=== PATIENT | male | born 1945 | race Caucasian/White ===

== ENCOUNTER → 2017-07-09 | Outpatient (CLI) | payer MEDICARE ==
--- NOTE | 2017-07-10 10:02 | PN ---
DATE OF CONSULT: 07/09/17 HISTORY OF PRESENT ILLNESS/SLEEP WAKE EVALUATION: 71 -year-old gentleman has been evaluated in the sleep center for evaluation of severe obstructive sleep apnea/hypopnea syndrome. The patient has been diagnosed with obstructive sleep apnea about 16 years ago. At the same time, he has had UPPP. Since that time, the patient started on treatment with BIPAP. Last titration done about 8 years ago. Presently the patient continued to use his BIPAP equipment every night. He does not know what pressure he has. SLEEP SCHEDULE: His usual sleep schedule from about 10:30 to 11 p.m. until 7: 30 a.m. FALLING ASLEEP: DURING SLEEP: Sometimes he opens his mouth during the night and wakes up. He eats in his bedroom. His machine is about 11 years old and does not work well at the present time. Burdett sleep scale significantly increased to 15. DURING THE DAY/WAKE STATE: The patient felt sleepy during the day. Medications: 1. ( ). 2. Atorvastatin. 3. ( ). PAST MEDICAL HISTORY: Hypertension, hyperlipidemia, allergy, back problems. PAST SURGICAL HISTORY: UPPP, right knee, total right knee replacement, several basal cell carcinomas of the skin has been removed. Back surgery one year ago. FAMILY HISTORY: Hypertension, arthritis, snoring, tuberculosis. Pneumonia and cancer. SOCIAL HISTORY: Positive for smoking up to two packs for 14 years, quite 34 years ago. Alcohol consumption occasional. REVIEW OF SYSTEMS: Tiredness and sleepiness during the day even while using BIPAP. No fevers. No double vision. No recent chest pain. No shortness of breath. No abdominal pain. No bleeding episodes. No blood in urine. No seizure episodes. PHYSICAL EXAM: GENERAL: A pleasant gentleman without any distress. VITAL SIGNS: BP 106/69, HR 66, RR 16, height 5 feet 8, weight 208, body mass index 31.6. Temperature 97.7. Oxygen saturation on room air 97%. HEENT: PERRLA, EOMI. Evaluation of oropharynx status post UPPP. No uvula. Short distance between soft palate and posterior pharyngeal wall. NECK: Supple. No JVD. Thyroid is not palpable. LUNGS: Clear to auscultation and percussion. Good air exchange. No wheezing or rhonchi. HEART: S1, S2 regular. No murmurs, gallops or rubs. ABDOMEN: Soft, nontender. Bowel sounds are preset. No organomegaly appreciated. EXTREMITIES: No clubbing or cyanosis. Scar on the right knee after knee replacement. DIELECTRIC PRESS OPERATOR: Awake, alert and oriented times three. Cranial nerves 2 to 7 intact. There is no fasciculation or atrophy noted. No focal deficits observed. IMPRESSION: 1. Obstructive sleep apnea/hypopnea syndrome diagnosed about 16 years ago. The patient is on treatment with BIPAP every night but has sleepiness during the day. Burdett sleep scale increased to 16. 2. Obesity, BMI 31.6. 3. Hypertension. 4. Back problems status post back surgery one year ago. 5. Hyperlipidemia. 6. Allergy. 7. Status post UPPP. 8. Status post sinus surgery. 9. Status post total right knee replacement. 10. Status post several basal cell carcinoma removed from the skin. PLAN: 1. BIPAP titration for evaluation of effective BIPAP pressure at the present time. 2. Losing weight. 3. Sleep hygiene with regular time in bed for at least 8 hours. 4. No driving if patient feels any sleepiness. Patient is aware of civil and criminal liability for unsafe driving. Thank you for allowing me to participate in the management of you patient. Sincerely, Mohit Leyva MD, PhD, FAASM Diplomat of [place] [employer]. Sleep Medicine Board by [place] [employer] [place] [employer] Manager Transportation [facility]
== END ==
LOC: SLEEP 15:32
PROVIDERS: ATTEND Internal Medicine
DX: G47.33 Obstructive sleep apnea (adult) (pediatric) (principal); E66.9 Obesity, unspecified; E78.5 Hyperlipidemia, unspecified; I10 Essential (primary) hypertension; Z96.651 Presence of right artificial knee joint; Z98.890 Other specified postprocedural states; Z87.891 Personal history of nicotine dependence; Z79.899 Other long term (current) drug therapy
CPT/HCPCS: 99211

== ENCOUNTER → 2018-06-15 | Outpatient (CLI) | payer MEDICARE ==
[2018-06-15 10:30] LABS: Albumin 3.9 g/dL (3.5-5.0); Calcium 9.2 mg/dL (8.4-10.2); Potassium 4.1 mmol/L (3.5-5.1); Total Bilirubin 1.6 mg/dL (0.2-1.3); Total Protein 6.7 g/dL (6.3-8.2)
[2018-06-15 10:31] LABS: HCT 40.8 % (39.0-53.0); HGB 13.9 gm/dL (13.0-17.5); MCH 32.4 pg (25.0-35.0); MCV 95.3 fL (80.0-100.0); Mean Platelet Volume 7.9; Platelet Count 201 k/uL (150-450); RBC 4.28 m/uL (4.30-5.90); RDW 13.5 % (11.5-15.5); WBC 9.6 k/uL (3.8-10.6)
[2018-06-15 10:35] LABS: Appearance,Urine Clear (Clear); Bacteria,Urine Rare /hpf; Bilirubin,Urine Negative (Negative); Blood,Urine Trace (Negative); Color,Urine Yellow; Glucose,Urine (UA) Negative (Negative); Ketones,Urine Trace (Negative); Leukocyte Esterase,Urine Negative (Negative); Mucus,Urine Rare /hpf; Nitrite,Urine Negative (Negative); PH, Urine 6.5 (5.0-8.0); Protein,Urine Trace (Negative); RBC,Urine 1 /hpf (0-5); Urobilinogen,Urine <2.0 mg/dL (<2.0)
--- NOTE | 2018-06-15 13:01 | XR ---
EXAMINATION TYPE: XR chest 2V DATE OF EXAM: 06/15/2018 COMPARISON: 02/05/2011 HISTORY: 72-year-old male with fever TECHNIQUE: Frontal and lateral views FINDINGS: The cardiomediastinal silhouette, aorta, and pulmonary vasculature are within normal limits. There is some patchy opacity in the posterior basilar right lower lobe seen only on the lateral view. No pleu ral effusion. IMPRESSION: Patchy opacity seen in the basilar posterior right lower lobe on the lateral view. Developing pneumon ia here not excluded.
== END | disposition home or self-care (01) ==
LOC: LABWHC1 08:49
PROVIDERS: ATTEND Internal Medicine
DX: R50.9 Fever, unspecified (principal)
CPT/HCPCS: 36415; 71046; 80053; 81001; 85027; 87040

== ENCOUNTER 2019-09-14 07:58 | Day surgery (SDC) | payer MEDICARE ==
[2019-09-12 15:40] VITALS: BMI 29.4
[~2019-09-14 07:58] MED LIST: LACTATED RINGERS 1,000 ML IV SCH; LIDOCAINE 1% 20 ML VIAL (10MG/ML) FOR IV START INTRADERMA PRN
[2019-09-14] MEDS ORDERED: LACTATED RINGERS 1,000 ML IV ONE (08:17)
[2019-09-14 08:25] VITALS: TEMP 98.1
[2019-09-14] MEDS ORDERED: PROPOFOL 10 MG/ML 20 ML VIAL IV ONE (08:44)
[2019-09-14] MEDS ORDERED: LIDOCAINE 1% INJ 10MG/ML (20 ML MDV) ONE (08:44)
--- NOTE | 2019-09-14 09:00 | P.PCN ---
Date of Procedure: 09/14/19 Procedure(s) Performed: BRIEF HISTORY: Patient is a 73-year-old pleasant white male scheduled for an elective colonoscopy as a part of screening for colorectal neoplasia. PROCEDURE PERFORMED: Colonoscopy snare polypectomy. PREOPERATIVE DIAGNOSIS: Screening for colon cancer. IV sedation per Anesthesia. PROCEDURE: After informed consent was obtained, the patient, was brought into the endoscopy unit. IV sedation was administered by Anesthesia under continuous monitoring. Digital rectal examination was normal. Initially the Olympus CF-160 flexible video colonoscope was then inserted in the rectum, gradually advanced into the cecum without any difficulty. Careful examination was performed as the scope was gradually being withdrawn. Ileocecal valve and the appendiceal orifice were visualized and appeared normal. Prep was excellent. In the base of the cecum there was a 2 mm polyp that was removed by snare polypectomy. In the hepatic flexure there was a 5 mm sessile polyp removed by snare polypectomy. Rest of the mucosa of the cecum, ascending colon, transverse colon, descending colon, sigmoid colon, and rectum appeared normal. In the sigmoid: There was a 5 mm polyp removed by snare polypectomy. Scattered sigmoid diverticulosis seen. Retroflexion was performed in the rectum and no lesions were seen. The patient tolerated the procedure well. IMPRESSION: 2 mm sessile cecal polyp status post polypectomy 5 mm sessile hepatic flexure polyp status post polypectomy 5 mm sigmoid colon polyp status post polypectomy Scattered sigmoid diverticula cyst. RECOMMENDATIONS: Findings of this examination were discussed with the patient as well as his family. He was advised to follow with the biopsy results. If the biopsy shows an adenoma he can have a repeat colonoscopy in 3-5 years.
[2019-09-14 09:26] VITALS: BP 104/71; PULSE 50; RESP 18
== END 2019-09-14 09:36 | disposition home or self-care (01) ==
LOC: ORWHC2ENDO 07:58
PROVIDERS: ATTEND Internal Medicine Gastroenterology
DX: Z12.11 Encounter for screening for malignant neoplasm of colon (principal); D12.0 Benign neoplasm of cecum; D12.3 Benign neoplasm of transverse colon; D12.5 Benign neoplasm of sigmoid colon; K57.30 Diverticulosis of large intestine without perforation or abscess without bleeding; G47.33 Obstructive sleep apnea (adult) (pediatric); I10 Essential (primary) hypertension; Z79.899 Other long term (current) drug therapy
CPT/HCPCS: 88305; 45385; J2001; J2704

== ENCOUNTER 2022-09-23 17:02 | Inpatient (IN) | payer MEDICARE ==
[2022-09-23] MEDS ORDERED: HEPARIN SODIUM 1,000 UN/ML (10ML VL) IV ONE (17:52)
[2022-09-23] MEDS ORDERED: HEPARIN SODIUM 1,000 UN/ML (10ML VL) IV PRN (17:52)
[2022-09-23] MEDS ORDERED: ASPIRIN 81 MG PO STA (17:52)
--- NOTE | 2022-09-23 17:55 | ED ---
General Adult HPI - General Chief complaint: Chest Pain Stated complaint: Irregular EKG-Sent by PCP Time Seen by Provider: 09/23/22 17:30 Source: patient Mode of arrival: ambulatory Limitations: no limitations - History of Present Illness Initial comments: Dictation was produced using [employer] dictation software. please excuse any grammatical, word or spelling errors. Chief Complaint: 76-year-old male sent from primary care physician's office for concerns of acute coronary syndrome History of Present Illness: 76-year-old male he's been having intermittent episodes of chest pressure since 3 days ago. He went to follow-up with his primary care doctor who did an EKG and some blood work. Dr. Fernández as his primary care doctor and instructed patient to go to the emergency department to be evaluated. Dr. Fernández called me to make sure that patient is seen immediately. Patient denies any cardiac history. He states that he has sub sternal chest pressure that radiates down both extremities. Associated diaphoresis and nausea. States that his pain was much worse on Thursday. Feels slightly less severe today though still apparent. The ROS documented in this emergency department record has been reviewed and confirmed by me. Those systems with pertinent positive or negative responses have been documented in the HPI. All other systems are other negative and/or noncontributory. PHYSICAL EXAM: General Impression: Alert and oriented x3, not in acute distress HEENT: Normocephalic atraumatic, extra-ocular movements intact, pupils equal and reactive to light bilaterally, mucous membranes moist. Cardiovascular: Heart regular rate and rhythm Chest: Able to complete full sentences, no retractions, no tachypnea Abdomen: abdomen soft, non-tender, non-distended, no organomegaly Musculoskeletal: Pulses present and equal in all extremities, no peripheral edema Motor: no focal deficits noted Neurological: CN II-XII grossly intact, no focal motor or sensory deficits noted Skin: Intact with no visualized rashes Psych: Normal affect and mood ED course: 76-year-old male to emergency Department for symptoms concerning for acute coronary syndrome since Thursday. Patient was seen in ATP room. EKG was performed at [address] segment elevation AK. Code STEMI paged. Spoke with Dr. Carranza at approximately 5:59 PM. X-rays not acute. Patient will be disposition to the carpenter labor supervisor immediately. EKG interpretation: Ventricular rate 61, sinus rhythm,. 166, QS 118, QTC 414. ST elevations in inferior leads with apparent Q waves. Doesn't appear to be some ST depressions in anterior precordial leads. There also is some mild elevations in septolateral precordial leads. - Related Data Home Medications Medication Instructions Recorded Confirmed Atorvastatin [Lipitor] 20 mg PO HS 09/12/19 09/12/19 Bisoprolol-Hctz 2.5-6.25 mg [Ziac 1 tab PO DAILY 09/12/19 09/12/19 2.5-6.25 MG] Cetirizine HCl [Zyrtec] 10 mg PO DAILY PRN 09/12/19 09/12/19 Omeprazole [PriLOSEC] 20 mg PO HS 09/12/19 09/12/19 Allergies Allergy/AdvReac Type Severity Reaction Status Date / Time No Known Allergies Allergy Verified 09/23/22 17:22 Review of Systems ROS Statement: Those systems with pertinent positive or pertinent negative responses have been documented in the HPI. ROS Other: All systems not noted in ROS Statement are negative. Past Medical History Past Medical History: Hyperlipidemia, Hypertension Additional Past Medical History / Comment(s): Sleep apnea History of Any Multi-Drug Resistant Organisms: None Reported Past Surgical History: Joint Replacement Additional Past Surgical History / Comment(s): Back Past Psychological History: No Psychological Hx Reported Smoking Status: Never smoker Past Alcohol Use History: Occasional Past Drug Use History: None Reported General Exam Limitations: no limitations Course Vital Signs 09/23/22 17:19 Temperature 99 F Pulse Rate 60 Respiratory 20 Rate Blood Pressure 100/68 O2 Sat by Pulse 96 Oximetry Medical Decision Making - Lab Data Result diagrams: 09/23/22 17:57 09/23/22 17:57 Lab Results 09/23/22 09/23/22 Range/Units 17:57 17:57 WBC 15.5 H (3.8-10.6) k/uL RBC 3.76 L (4.30-5.90) m/uL Hgb 13.0 (13.0-17.5) gm/dL Hct 36.1 L (39.0-53.0) % MCV 96.2 (80.0-100.0) fL MCH 34.7 (25.0-35.0) pg MCHC 36.0 (31.0-37.0) g/dL RDW 12.6 (11.5-15.5) % Plt Count 201 (150-450) k/uL MPV 9.0 Neutrophils % 80 % Lymphocytes % 9 % Monocytes % 9 % Eosinophils % 0 % Basophils % 0 % Neutrophils # 12.3 H (1.3-7.7) k/uL Lymphocytes # 1.4 (1.0-4.8) k/uL Monocytes # 1.3 H (0-1.0) k/uL Eosinophils # 0.1 (0-0.7) k/uL Basophils # 0.0 (0-0.2) k/uL Sodium 133 L (137-145) mmol/L Potassium 3.5 (3.5-5.1) mmol/L Chloride 96 L (98-107) mmol/L Carbon Dioxide 22 (22-30) mmol/L Anion Gap 15 mmol/L BUN 16 (9-20) mg/dL Creatinine 0.96 (0.66-1.25) mg/dL Est GFR (CKD-EPI)AfAm 90 (>60 ml/min/1.73 sqM) Est GFR (CKD-EPI)NonAf 78 (>60 ml/min/1.73 sqM) Glucose 99 (74-99) mg/dL Calcium 8.8 (8.4-10.2) mg/dL Total Bilirubin 1.9 H (0.2-1.3) mg/dL AST 86 H (17-59) U/L ALT 34 (4-49) U/L Alkaline Phosphatase 72 (38-126) U/L Total Protein 6.5 (6.3-8.2) g/dL Albumin 3.8 (3.5-5.0) g/dL Disposition Clinical Impression: STEMI (ST elevation myocardial infarction) Disposition: ADMITTED IP TO THIS HOSP Condition: Critical Referrals: Abdulkadir Fernández MD [Primary Care Provider] - 1-2 days Decision Time: 18:21
[2022-09-23] MEDS ORDERED: SODIUM CHLORIDE 0.9% 1,000 ML IV STA (18:00)
[2022-09-23] MEDS ORDERED: HEPARIN SOD,PORK IN 0.45% NACL 25,000 UNIT in 0.45% NACL 1 250ML.BAG IV SCH (18:00)
[2022-09-23] MEDS ORDERED: NALOXONE 0.4 MG/ML 1 ML VIAL IV PRN (18:02)
[2022-09-23 18:10] LABS: Basophils % (A) 0 %; Eosinophils # (A) 0.1 k/uL (0-0.7); Eosinophils % (A) 0 %; HCT 36.1 % (39.0-53.0); Lymphocytes # (A) 1.4 k/uL (1.0-4.8); Lymphocytes % (A) 9 %; MCH 34.7 pg (25.0-35.0); MCV 96.2 fL (80.0-100.0); Monocytes # (A) 1.3 k/uL (0-1.0); Monocytes % (A) 9 %; Neutrophils # (A) 12.3 k/uL (1.3-7.7); Neutrophils % (A) 80 %; Platelet Count 201 k/uL (150-450); RBC 3.76 m/uL (4.30-5.90); RDW 12.6 % (11.5-15.5); WBC 15.5 k/uL (3.8-10.6)
[2022-09-23 18:19] LABS: Albumin 3.8 g/dL (3.5-5.0); Calcium 8.8 mg/dL (8.4-10.2); Potassium 3.5 mmol/L (3.5-5.1); Total Bilirubin 1.9 mg/dL (0.2-1.3); Total Protein 6.5 g/dL (6.3-8.2)
--- NOTE | 2022-09-23 18:19 | XR ---
EXAMINATION TYPE: XR chest 1V DATE OF EXAM: 09/23/2022 COMPARISON: 06/15/2018 HISTORY: Chest pain TECHNIQUE: FINDINGS: There is mild subsegmental atelectasis at the lung bases. There is poor inspiration. No hea rt failure. There are no hilar masses. There are chest leads. IMPRESSION: Subsegmental atelectasis mostly new compared to old exam. Normal heart.
[2022-09-23 18:21] LABS: INR 1.2 (<1.2); Partial Thromboplastin Time 26.1 sec (22.0-30.0); Prothrombin Time 12.4 sec (9.0-12.0)
[2022-09-23] MEDS ORDERED: HEPARIN SODIUM 1,000 UN/ML (10ML VL) ONE (18:21)
[2022-09-23] MEDS ORDERED: MIDAZOLAM 2 MG/2 ML VIAL IV ONE (18:23)
[2022-09-23] MEDS ORDERED: LIDOCAINE 1% INJ 10MG/ML (30 ML VIAL-PF) SQ ONE (18:24)
[2022-09-23] MEDS ORDERED: IV FLUID CONTINUATION 900 ML IV ONE (18:33)
[2022-09-23] MEDS: HEPARIN SODIUM 1,000 UN/ML (10ML VL) IV ONE ×2 (18:40→18:50)
[2022-09-23] MEDS ORDERED: TICAGRELOR 90 MG TAB ONE (18:40)
[2022-09-23] MEDS ORDERED: TICAGRELOR 90 MG TAB PO ONE (18:42)
[2022-09-23] MEDS ORDERED: niCARdipine 25 MG/10 ML VIAL ONE (18:50)
[2022-09-23] MEDS ORDERED: PHENYLEPHRINE-0.9% NACL SYG 1,000 MCG/10 ML SYRINGE IV ONE (19:10)
[2022-09-23] MEDS ORDERED: niCARdipine Syringe (1,000 mcg/10 mL) INTRACORON ONE (19:13)
[2022-09-23] MEDS ORDERED: IOPAMIDOL-370 125ML BTL INJ ONE (19:15)
[2022-09-23] MEDS ORDERED: ATROPINE SULFATE 0.1 MG/ML 10ML SYRINGE IV PRN (19:31)
[2022-09-23] MEDS ORDERED: RX INFO: IV CONTRAST WAS GIVEN 1 EACH MISC MISCELLANE PRN (19:31)
[2022-09-23] MEDS ORDERED: MAG HYDROX/AL HYDROX/SIMETH 30 ML CUP PO PRN (19:31)
[2022-09-23] MEDS ORDERED: ZOLPIDEM 5 MG TAB PO PRN (19:31)
[2022-09-23] MEDS ORDERED: NITROGLYCERIN SL TABS 0.4 MG TAB SUBLINGUAL PRN (19:31)
--- NOTE | 2022-09-23 19:41 | P.PCN ---
Date of Procedure: 09/23/22 Operative Findings: CARDIAC CATHETERIZATION AND PERCUTANEOUS CORONARY INTERVENTION PERFORMING PHYSICIAN: Ahmet Carranza MD, [facility] PROCEDURE PERFORMED: 1. Selective right and left coronary angiogram 2. Left heart catheterization 3. Successful stenting of distal right coronary artery using 4.0 x 28 mm and 4.0 x 15 mm Xience AL which with an excellent angiographic results and reduction of stenosis from 100% to 0 4. Adjunctive use of mechanical aspiration thrombectomy 5. Selective right common femoral artery angiogram 6. Ultrasound-guided access of the right common femoral and INDICATION: Acute inferior ST elevation myocardial infarction in this 76-year-old gentleman COMPLICATION: None APPROACH: Right common femoral artery LEVEL OF SEDATION: Moderate with the sedation time off 56 minutes PROCEDURE DESCRIPTION: After obtaining an informed consent the patient was brought emergently to the cardiac parking lot laborer. The right common femoral artery was cannulated using micropuncture technique, under ultrasound guidance, the micropuncture wire passed easily then I placed initially 11 cm 6-Indonesian sheath at the right common femoral artery but subsequently because of extreme tortuosity in the aortoiliac segment on the right side I changed the sheath into a 23 cm 6-Indonesian sheath. That was performed over all 35 wire. Subsequently selective right coronary angiogram was performed using JR4 guiding catheter. After that I did intervene on the RCA. Then I did selective left coronary angiogram using a JL4 catheter. Left heart catheterization was performed using the JR4 catheter which initially cross the aortic valve then I did pulled back across the valve. After that I did exchange my long sheath into short sheath and then I did selective right common femoral artery angiogram before I deployed the Angio-Seal. The procedure was completed without any complication SELECTIVE CORONARY ANGIOGRAM: The right coronary artery: Large caliber vessel and is a dominant vessel. The RCA is occluded distally with a large thrombus burden. Left main: Is angiographically normal. Bifurcates into an LCx and LAD The left circumflex: Large caliber vessel nondominant vessel. The LCx has mild disease only. Gives rise into a large OM branch which appeared to be angiographically normal The left anterior descending artery: The LAD itself has mild disease only. Gives rise into a large diagonal branch which has a lesion appeared to be at least in the range of 60-70%. HEMODYNAMICS: The LVEDP was 16 mmHg was no significant gradient across aortic valve PCI OF THE RCA: Anticoagulation was initiated using heparin with continuous ACT monitoring throughout the case. I did engage the RCA using JR4 guiding catheter. The le daniele in the distal right coronary artery was crossed using an 014 run through wire. After that I did aspiration thrombectomy manually using the export catheter and I could not extract any thrombus. Balloon angioplasty after that was performed using 3.5 mm balloon and I was unable to restore the flow in the right coronary artery and the patient continues to have chest discomfort and ST segment elevation inferiorly. At that point I decided to use a mechanical aspiration thrombectomy. I advanced the catheter over 014 wire and I did 2 runs of mechanical aspiration thrombectomy with the extraction of large red thrombus from the RCA distally and with that I was able to restore the flow. The following angiogram showed a tight lesion involving the distal right coronary artery. I was able to advance initially 4.0 x 28 mm stent with adjunctive use of guide liner. The stent itself was unable to be delivered. I deployed the stent under fluoroscopy guidance after it was positioned under fluoroscopy guidance with contrast injection. The stent was deployed under 12 shannon for 20 seconds. The following angiogram showed an annular lesion distal to the stented segment appears to be possible either residual thrombus or H dissection. I decided to cover that with the stent. I deployed another 4.0 x 15 mm stents. Then the area of overlap between the 2 stents was dilated using the stent bal loon. 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 I did successful stenting of the RCA with adjunctive use of mechanical thrombectomy and with an excellent angiographic results #3 at least intermediate to severe lesion involving the first diagonal branch of the LAD which is a large diagonal branch #4 mildly elevated left-sided filling pressure POSTPROCEDURE MANAGEMENT: #1 dual antiplatelet therapy using aspirin and Brilinta for at least 12 months #2 aggressive cholesterol control #3 follow-up with the patient
--- NOTE | 2022-09-23 19:44 | P.CRDCN ---
History of Present Illness Consult date: 09/23/22 Chief complaint: Chest discomfort History of present illness: This is a very pleasant 76-year-old gentleman with a past medical history significant for hypertension and dyslipidemia who presented to the emergency department complaining of chest discomfort. The patient chest discomfort started about 3 days ago. Apparently get worse earlier today when he decided to come to the emergency department. He was seen by Dr. Fernández who advised the p atient to present to the emergency department. In the emergency department an EKG was performed and showed ST segment elevation inferiorly. For that reason an emergent heart catheterization was advised. The patient underwent an emergent heart catheterization and that revealed acute total occlusion of the RCA distally with large thrombus burden. He underwent successful stenting of the RCA with adjunctive use of mechanical aspiration thrombectomy with an excellent angiographic results by the end and without any complication from right groin approach. By the end of the procedure the ST elevation has improved and the chest discomfort has improved. The procedure was performed from right groin. He would be admitted to the intensive care unit. An echocardiogram will be ordered to assess the LV function. He will be on dual antiplatelet therapy as well as high intensity statin as well as anti-ischemic medication. We'll follow-up with the patient overnight few days. Past Medical History Past Medical History: Hyperlipidemia, Hypertension Additional Past Medical History / Comment(s): Sleep apnea History of Any Multi-Drug Resistant Organisms: None Reported Past Surgical History: Joint Replacement Additional Past Surgical History / Comment(s): Back Past Psychological History: No Psychological Hx Reported Smoking Status: Never smoker Past Alcohol Use History: Occasional Past Drug Use History: None Reported Medications and Allergies Home Medications Medication Instructions Recorded Confirmed Type Bisoprolol-Hctz 2.5-6.25 mg [Ziac 1 tab PO DAILY 09/12/19 09/23/22 History 2.5-6.25 MG] Cetirizine HCl [Zyrtec] 10 mg PO DAILY PRN 09/12/19 09/23/22 History Omeprazole [PriLOSEC] 20 mg PO HS 09/12/19 09/23/22 History Ezetimibe [Zetia] 10 mg PO DAILY 09/23/22 09/23/22 History Allergies Allergy/AdvReac Type Severity Reaction Status Date / Time No Known Allergies Allergy Verified 09/23/22 19:12 Physical Exam Vitals: Vital Signs Temp Pulse Resp BP Pulse Ox 09/23/22 18:08 64 17 107/77 97 09/23/22 18:04 65 15 114/74 99 09/23/22 17:19 99 F 60 20 100/68 96 Intake and Output 09/23/22 09/23/22 09/23/22 06:59 14:59 22:59 Intake Total 500 Balance 500 Intake: IV 500 Other: Weight 90.265 kg - Constitutional General appearance: no acute distress - Respiratory Respiratory: bilateral: CTA - Cardiovascular Rhythm: regular Heart sounds: normal: S1, S2 Results 09/23/22 17:57 09/23/22 17:57 Cardiac Enzymes 09/23/22 09/23/22 Range/Units 17:57 17:57 AST 86 H (17-59) U/L Troponin I 24.000 H* (0.000-0.034) ng/mL Coagulation 09/23/22 Range/Units 17:57 PT 12.4 H (9.0-12.0) sec APTT 26.1 (22.0-30.0) sec CBC 09/23/22 Range/Units 17:57 WBC 15.5 H (3.8-10.6) k/uL RBC 3.76 L (4.30-5.90) m/uL Hgb 13.0 (13.0-17.5) gm/dL Hct 36.1 L (39.0-53.0) % Plt Count 201 (150-450) k/uL Comprehensive Metabolic Panel 09/23/22 Range/Units 17:57 Sodium 133 L (137-145) mmol/L Potassium 3.5 (3.5-5.1) mmol/L Chloride 96 L (98-107) mmol/L Carbon Dioxide 22 (22-30) mmol/L BUN 16 (9-20) mg/dL Creatinine 0.96 (0.66-1.25) mg/dL Glucose 99 (74-99) mg/dL Calcium 8.8 (8.4-10.2) mg/dL AST 86 H (17-59) U/L ALT 34 (4-49) U/L Alkaline Phosphatase 72 (38-126) U/L Total Protein 6.5 (6.3-8.2) g/dL Albumin 3.8 (3.5-5.0) g/dL Current Medications Generic Name Dose Route Start Last Admin Trade Name Freq PRN Reason Stop Dose Admin Al Hydroxide/Mg Hydroxide 30 ml 09/23/22 19:31 Mag Hydrox/Al Hydrox/Simeth 30 Ml Cup PO Q4HR PRN Heartburn Aspirin 81 mg 09/24/22 09:00 Aspirin 81 Mg PO DAILY [facility] Atorvastatin Calcium 80 mg 09/23/22 21:00 Atorvastatin 80 Mg Tab PO HS [facility] Atropine Sulfate 0.5 mg 09/23/22 19:31 Atropine Sulfate 0.1 Mg/Ml 10ml Syringe IV ONCE PRN Symptomatic Bradycardia Heparin Sodium (Porcine) 0 unit 09/23/22 17:52 Heparin Sodium 1,000 Un/Ml (10ml Vl) IV PER PROTOCOL PRN Low PTT Protocol Heparin Sodium/Sodium Chloride 250 mls @ 10 mls/hr 09/23/22 18:00 25,000 unit/ Sodium Chloride IV .Q24H [facility] Protocol 11.078 UNITS/KG/HR Sodium Chloride 1,000 mls @ 20 mls/hr 09/23/22 18:15 Saline 0.9% IV .Q24H [facility] Sodium Chloride 1,000 ml/ IV 1,000 mls @ 75 mls/hr 09/23/22 19:45 Solution IV 09/24/22 01:46 .[id number] [facility] Metoprolol Tartrate 25 mg 09/23/22 21:00 Metoprolol Tartrate 25 Mg Tab PO BID [facility] Miscellaneous Information 1 each 09/23/22 19:31 Rx Info: Iv Contrast Was Given 1 Each Misc MISCELLANE 09/25/22 19:32 DAILY PRN Per Protocol Naloxone HCl 0.2 mg 09/23/22 18:02 Naloxone 0.4 Mg/Ml 1 Ml Vial IV Q2M PRN Opioid Reversal Nitroglycerin 0.4 mg 09/23/22 19:31 Nitroglycerin Sl Tabs 0.4 Mg Tab SUBLINGUAL Q5M PRN Chest Pain Ticagrelor 90 mg 09/24/22 09:00 Ticagrelor 90 Mg Tab PO BID [facility] Protocol Zolpidem Tartrate 5 mg 09/23/22 19:31 Zolpidem 5 Mg Tab PO HS PRN Insomnia Intake and Output 09/23/22 09/23/22 09/23/22 06:59 14:59 22:59 Intake Total 500 Balance 500 Intake: IV 500 Other: Weight 90.265 kg Patient Weight 09/24/22 06:59 Weight 90.265 kg 09/23/22 17:57 09/23/22 17:57 Assessment and Plan Assessment: Assessment #[address] patient myocardial infarction Plan Continue current medical regimen Continue dual antiplatelet therapy Standard groin care Aggressive cholesterol control An echocardiogram was Doppler Follow-up with the patient
[2022-09-23] MEDS ORDERED: SODIUM CHLORIDE 0.9% 1,000 ML in EMPTY BAG 1 BAG IV SCH (19:45)
[2022-09-23 19:47] LABS: Glucose,Whole Blood 100 mg/dL (70-110)
[2022-09-23] MEDS: SODIUM CHLORIDE 0.9% 1,000 ML IV SCH (20:00)
[2022-09-23] MEDS: METOPROLOL TARTRATE 25 MG TAB PO SCH (21:58)
[2022-09-23] MEDS: ATORVASTATIN 80 MG TAB PO SCH (21:58)
[2022-09-24 06:50] LABS: HCT 32.1 % (39.0-53.0); HGB 11.1 gm/dL (13.0-17.5); MCH 33.8 pg (25.0-35.0); MCHC 34.6 g/dL (31.0-37.0); MCV 97.7 fL (80.0-100.0); Mean Platelet Volume 9.3; Platelet Count 177 k/uL (150-450); RBC 3.28 m/uL (4.30-5.90); RDW 12.6 % (11.5-15.5); WBC 12.9 k/uL (3.8-10.6)
[2022-09-24 07:11] LABS: Calcium 8.2 mg/dL (8.4-10.2); Potassium 3.3 mmol/L (3.5-5.1)
[2022-09-24] MEDS ORDERED: LORATADINE 10 MG TAB PO PRN (09:16)
--- NOTE | 2022-09-24 09:19 | P.HPIM ---
History of Present Illness H&P Date: 09/24/22 HISTORY OF PRESENT ILLNESS This is a 76-year-old male patient with past medical history of hypertension, hyperlipidemia, gastroesophageal reflux disease, ALLERGIC rhinitis, obstructive sleep apnea, chronic back pain status post laminectomy. Patient presented to the office yesterday with complaints of chest pain with onset on Thursday and in general not feeling well. 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 Intermediate to severe lesion involving the first diagonal branch of the LAD, mildly elevated left sided filling pressure. Patient is seen today in the intensive care unit, he has been downgraded to cardiac stepdown unit. Patient states that he is feeling much better from yesterday. No chest pain, no shortness of breath, no lightheadedness or dizziness. Left heart cath approach was from the right groin with no signs of hematoma. No numbness or tingling to the extremities. Patient has CPAP at his bedside. Echocardiogram has been ordered for today. REVIEW OF SYSTEMS Constitutional: No fever, no chills, no night sweats. No weight change. No weakness, fatigue improved or now lethargy. No daytime sleepiness. EENT: No headache. No blurred vision or double vision, no loss of vision. No loss of Hearing, no ringing in the ears, no dizziness. No nasal drainage or congestion. No epistaxis. No sore throat. Lungs: No shortness of breath, cough, no sputum production. No wheezing. Cardiovascular: No chest pain-has resolved, no lower extremity edema. No palpitations. No paroxysmal nocturnal dyspnea. No orthopnea. No ligh theadedness or dizziness. No syncopal episodes. Abdominal: No abdominal pain. No nausea, vomiting. No diarrhea. No constipation. No bloody or tarry stools. No loss of appetite. Genitourinary: No dysuria, increased frequency, urgency. No urinary retention. Musculoskeletal: No myalgias. No muscle weakness, no gait dysfunction, no frequent falls. No back pain. No neck pain. Integumentary: No wounds, no lesions. No rash or pruritus. No unusual bruising. No change in hair or nails. Neurologic: No aphasia. No facial droop. No change in mentation. No head injury. No headache. No paralysis. No paresthesia. Psychiatric: No depression. No anxiety. No mood swings. Endocrine: No abnormal blood sugars. No weight change. No excessive sweating or thirst. No cold intolerance. MEDICAL HISTORY Hypertension Hyperlipidemia Gastroesophageal reflux disease ALLERGIC rhinitis Obstructive sleep apnea with CPAP Inferior wall CT 08/2022 SURGICAL HISTORY Laminectomy [address] Heredia Colonoscopy with Dr. Liu 2019 Bilateral cataract removal and intraocular lens implants Right knee replacement UVP PP Left heart catheterization with stent to the RCA and mechanical thrombectomy SOCIAL HISTORY Patient was a smoker of 2 packs per day for 10 years and quit when he was 33. No alcohol abuse. FAMILY HISTORY Father at age 94 from old age with history of hypertension, lymphoma (NHL) status post chemotherapy and radiation therapy, TB. Mother is alive at age 102 with Alzheimers dementia. Patient has 2 sisters alive with no major medical problems. Patient has one son and one daughter with no major medical problems. PHYSICAL EXAMINATION Gen: This is a 76-year-old male. He is resting in the ICU bed and appears to be comfortable and in no acute distress. HEENT: Head is atraumatic, normocephalic. Pupils equal, round, reactive to light and accommodation. Sclerae is anicteric. Extraocular muscle movements are intact. NECK: Supple. No JVD. No lymphadenopathy. No thyromegaly. LUNGS: Clear to auscultation. No wheezes or rhonchi. No intercostal retraction s. No chest wall tenderness or intercostal retractions. HEART: First heart sound is depressed, second heart sound is normal, there is a 2/6 systolic ejection murmur at the left sternal border, no S3 or S4. ABDOMEN: Soft. Bowel sounds are present. No masses. No tenderness. EXTREMITIES: No pedal edema. No calf tenderness dorsalis pedis +2 bilaterally. Right groin with no hematoma.. NEUROLOGICAL: Patient is awake, alert and oriented x3. Cranial nerves 2 through 12 are grossly intact. ASSESSMENT AND PLAN 1. Acute inferior wall ST elevated myocardial infarction. Patient is status post left heart catheterization and stenting of the RCA, mechanical thrombectomy. Patient has been cleared by cardiology for transfer to the cardiac stepdown unit. Patient continued on aspirin 81 mg daily, atorvastatin 80 mg daily, Lopressor 25 mg twice daily, Brilinta 90 mg twice daily 2. Hypertension. Blood pressure readings are soft. Continue patient on Lopressor 25 mg twice daily. Ziac is on hold. 3. Hyperlipidemia. Continue atorvastatin 80 mg daily. 4. Gastroesophageal reflux disease and GI prophylaxis. Patient resumed on omeprazole 20 mg at bedtime. 5. Seasonal ALLERGIES. Patient resumed on Zyrtec 10 mg daily as needed. 6. DVT prophylaxis. Early ambulation. Patient will be admitted to the hospital for a minimum of 2 night stay. DISCHARGE PLAN Return home. Impression and plan of care have been directed as dictated by the signing physician. Gerda Valenzuela nurse practitioner acting as scribe for signing physician. Past Medical History Past Medical History: Hyperlipidemia, Hypertension Additional Past Medical History / Comment(s): Sleep apnea History of Any Multi-Drug Resistant Organisms: None Reported Past Surgical History: Joint Replacement Additional Past Surgical History / Comment(s): Back surgery, arthroscopic surgery Past Anesthesia/Blood Transfusion Reactions: No Reported Reaction Past Psychological History: No Psychological Hx Reported Smoking Status: Former smoker Past Alcohol Use History: Occasional Past Drug Use History: None Reported - Past Family History Father Family Medical History: Cancer Additional Family Medical History / Comment(s): Non-hodgkins lymphoma Mother Family Medical History: Dementia, Hypertension Medications and Allergies Home Medications Medication Instructions Recorded Confirmed Type Bisoprolol-Hctz 2.5-6.25 mg [Ziac 1 tab PO DAILY 09/12/19 09/23/22 History 2.5-6.25 MG] Cetirizine HCl [Zyrtec] 10 mg PO DAILY PRN 09/12/19 09/23/22 History Omeprazole [PriLOSEC] 20 mg PO HS 09/12/19 09/23/22 History Ezetimibe [Zetia] 10 mg PO DAILY 09/23/22 09/23/22 History Atorvastatin [Lipitor] 20 mg PO DAILY 09/24/22 09/24/22 History Allergies Allergy/AdvReac Type Severity Reaction Status Date / Time No Known Allergies Allergy Verified 09/23/22 19:12 Physical Exam Vitals: Vital Signs Temp Pulse Pulse Pulse Resp BP BP 09/24/22 07:32 09/24/22 07:00 75 16 109/73 09/24/22 06:30 68 18 102/76 09/24/22 06:00 67 11 L 107/69 09/24/22 05:30 73 12 100/72 09/24/22 05:00 70 12 101/69 09/24/22 04:30 71 11 L 100/67 09/24/22 04:00 99.0 F 68 10 L 93/72 09/24/22 03:30 68 12 96/67 09/24/22 03:00 68 16 99/73 09/24/22 02:30 67 19 102/70 09/24/22 02:00 71 11 L 104/69 09/24/22 01:30 68 11 L 103/67 09/24/22 01:00 70 16 97/65 09/24/22 00:30 66 13 91/67 09/24/22 00:00 98.5 F 65 12 92/57 09/23/22 23:30 65 12 100/66 09/23/22 23:00 70 12 96/71 09/23/22 22:45 70 7 L 93/66 09/23/22 22:30 75 13 102/67 09/23/22 22:15 74 9 L 112/64 09/23/22 22:00 73 10 L 103/72 09/23/22 21:45 75 12 104/69 09/23/22 21:30 77 10 L 92/57 09/23/22 21:15 81 12 107/86 09/23/22 21:00 77 12 90/52 09/23/22 20:45 74 13 104/73 09/23/22 20:30 71 11 L 109/75 09/23/22 20:15 73 15 113/75 09/23/22 20:00 69 12 111/79 09/23/22 19:47 98.9 F 68 13 110/91 09/23/22 19:46 98.9 F 68 13 110/91 09/23/22 19:45 98.9 F 68 13 110/91 09/23/22 19:32 78 09/23/22 18:08 64 17 107/77 09/23/22 18:04 65 15 114/74 09/23/22 17:19 99 F 60 20 100/68 Pulse Ox 09/24/22 07:32 96 09/24/22 07:00 98 09/24/22 06:30 95 09/24/22 06:00 96 10/26/22 05:30 97 09/24/22 05:00 95 09/24/22 04:30 96 09/24/22 04:00 96 09/24/22 03:30 97 09/24/22 03:00 97 09/24/22 02:30 98 09/24/22 02:00 100 09/24/22 01:30 98 09/24/22 01:00 97 09/24/22 00:30 95 09/24/22 00:00 96 09/23/22 23:30 99 09/23/22 23:00 98 09/23/22 22:45 99 09/23/22 22:30 98 09/23/22 22:15 98 09/23/22 22:00 96 09/23/22 21:45 96 09/23/22 21:30 95 09/23/22 21:15 96 09/23/22 21:00 96 09/23/22 20:45 97 09/23/22 20:30 97 09/23/22 20:15 96 09/23/22 20:00 95 09/23/22 19:47 93 L 09/23/22 19:46 93 L 09/23/22 19:45 93 L 09/23/22 19:32 09/23/22 18:08 97 09/23/22 18:04 99 09/23/22 17:19 96 Intake and Output 09/23/22 09/24/22 09/24/22 22:59 06:59 14:59 Intake Total 800 705 Output Total 420 1150 Balance 380 -445 Intake: IV 800 225 Sodium Chloride 0.9% 1, 300 225 000 ml In Empty Bag 1 bag @ 75 mls/hr IV .[id number] [facility] Rx#:[id number] Tube Feeding 480 Output: Urine 420 1150 Other: Voiding Method Urinal Urinal Weight 90.265 kg 91 kg Results CBC & Chem 7: 09/24/22 06:11 09/24/22 06:11 Labs: Abnormal Lab Results - Last 24 Hours (Table) 09/23/22 09/23/22 09/23/22 Range/Units 17:57 17:57 17:57 WBC 15.5 H (3.8-10.6) k/uL RBC 3.76 L (4.30-5.90) m/uL Hgb (13.0-17.5) gm/dL Hct 36.1 L (39.0-53.0) % Neutrophils # 12.3 H (1.3-7.7) k/uL Monocytes # 1.3 H (0-1.0) k/uL PT 12.4 H (9.0-12.0) sec INR 1.2 H (<1.2) Sodium 133 L (137-145) mmol/L Potassium (3.5-5.1) mmol/L Chloride 96 L (98-107) mmol/L Calcium (8.4-10.2) mg/dL Total Bilirubin 1.9 H (0.2-1.3) mg/dL AST 86 H (17-59) U/L Troponin I (0.000-0.034) ng/mL 09/23/22 09/24/22 09/24/22 Range/Units 17:57 06:11 06:11 WBC 12.9 H (3.8-10.6) k/uL RBC 3.28 L (4.30-5.90) m/uL Hgb 11.1 L (13.0-17.5) gm/dL Hct 32.1 L (39.0-53.0) % Neutrophils # (1.3-7.7) k/uL Monocytes # (0-1.0) k/uL PT (9.0-12.0) sec INR (<1.2) Sodium 134 L (137-145) mmol/L Potassium 3.3 L (3.5-5.1) mmol/L Chloride (98-107) mmol/L Calcium 8.2 L (8.4-10.2) mg/dL Total Bilirubin (0.2-1.3) mg/dL AST (17-59) U/L Troponin I 24.000 H* (0.000-0.034) ng/mL Thrombosis Risk Factor Assmnt - Choose All That Apply Each Factor Represents 1 point: Acute CT Each Risk Factor Represents 2 Points: Age 61-74 years, Arthroscopic surgery Each Risk Factor Represents 3 Points: History of DVT/PE Thrombosis Risk Factor Assessment Total Risk Factor Score: 8 Thrombosis Risk Factor Assessment Level: High Risk
[2022-09-24] MEDS ORDERED: POTASSIUM CHLORIDE ER 20 MEQ TAB.ER PO STA (09:21)
[2022-09-24] MEDS: METOPROLOL TARTRATE 25 MG TAB PO SCH ×2 (09:24→20:15)
[2022-09-24] MEDS: TICAGRELOR 90 MG TAB PO SCH ×2 (09:24→20:15)
[2022-09-24] MEDS: ASPIRIN 81 MG PO SCH (09:24)
--- NOTE | 2022-09-24 12:21 | P.PN ---
Subjective Progress Note Date: 09/24/22 Principal diagnosis: Acute inferior ST elevation [place] This is a very pleasant 76-year-old gentleman with a past medical history significant for hypertension and dyslipidemia who presented to the emergency department complaining of chest discomfort. The patient chest discomfort st arted about 3 days ago. Apparently get worse earlier today when he decided to come to the emergency department. He was seen by Dr. Fernández who advised the patient to present to the emergency department. In the emergency department an EKG was performed and showed ST segment elevation inferiorly. For that reason an emergent heart catheterization was advised. The patient underwent an emergent heart catheterization and that revealed acute total occlusion of the RCA distally with large thrombus burden. He underwent successful stenting of the RCA with adjunctive use of mechanical aspiration thrombectomy with an excellent angiographic results by the end and without any complication from right groin approach. By the end of the procedure the ST elevation has improved and the chest discomfort has improved. The procedure was performed from right groin. He would be admitted to the intensive care unit. An echocardiogram will be ordered to assess the LV function. He will be on dual antiplatelet therapy as well as high intensity statin as well as anti-ischemic medication. We'll follow-up with the patient overnight few days. September 24 The patient was seen this morning. He is stable from a cardiovascular standpoint of view. He is asymptomatic. He is mechanically stable as well. We are in process of having an echocardiogram. Meanwhile he continues to be on dual antiplatelet therapy as well as beta jorge as well as high intensity statin. From the cardiac standpoint the patient can be transferred to the floor. Objective - Vital Signs Vital signs: Vital Signs Temp 99.4 F 09/24/22 08:30 Pulse 67 09/24/22 11:00 Resp 15 09/24/22 11:00 BP 105/79 09/24/22 11:00 Pulse Ox 92 L 09/24/22 11:00 FiO2 Intake & Output 09/23/22 09/24/22 09/24/22 18:59 06:59 18:59 Intake Total 500 1005 480 Output Total 1570 325 Balance 500 -565 155 Weight 90.265 kg 91 kg Intake: IV 500 525 Sodium Chloride 0.9% 1, 525 000 ml In Empty Bag 1 bag @ 75 mls/hr IV .[id number] [facility] Rx#:[id number] Tube Feeding 480 480 Output: Urine 1570 325 Other: Voiding Method Urinal # Voids 0 - Constitutional General appearance: Present: no acute distress - Respiratory Respiratory: bilateral: CTA - Cardiovascular Rhythm: regular Heart sounds: normal: S1, S2 - Labs CBC & Chem 7: 09/24/22 06:11 09/24/22 06:11 Labs: Abnormal Lab Results - Last 24 Hours (Table) 09/23/22 09/23/22 09/23/22 Range/Units 17:57 17:57 17:57 WBC 15.5 H (3.8-10.6) k/uL RBC 3.76 L (4.30-5.90) m/uL Hgb (13.0-17.5) gm/dL Hct 36.1 L (39.0-53.0) % Neutrophils # 12.3 H (1.3-7.7) k/uL Monocytes # 1.3 H (0-1.0) k/uL PT 12.4 H (9.0-12.0) sec INR 1.2 H (<1.2) Sodium 133 L (137-145) mmol/L Potassium (3.5-5.1) mmol/L Chloride 96 L (98-107) mmol/L Calcium (8.4-10.2) mg/dL Total Bilirubin 1.9 H (0.2-1.3) mg/dL AST 86 H (17-59) U/L Troponin I (0.000-0.034) ng/mL 09/23/22 09/24/22 09/24/22 Range/Units 17:57 06:11 06:11 WBC 12.9 H (3.8-10.6) k/uL RBC 3.28 L (4.30-5.90) m/uL Hgb 11.1 L (13.0-17.5) gm/dL Hct 32.1 L (39.0-53.0) % Neutrophils # (1.3-7.7) k/uL Monocytes # (0-1.0) k/uL PT (9.0-12.0) sec INR (<1.2) Sodium 134 L (137-145) mmol/L Potassium 3.3 L (3.5-5.1) mmol/L Chloride (98-107) mmol/L Calcium 8.2 L (8.4-10.2) mg/dL Total Bilirubin (0.2-1.3) mg/dL AST (17-59) U/L Troponin I 24.000 H* (0.000-0.034) ng/mL Assessment and Plan Assessment: Assessment #[address] patient myocardial infarction #2 status post PCI of the RCA Plan Continue current medical regimen Continue dual antiplatelet therapy Aggressive cholesterol control An echocardiogram was Doppler Follow-up with the patient
[2022-09-24] MEDS: SODIUM CHLORIDE 0.9% 1,000 ML IV SCH (19:45)
[2022-09-24] MEDS: PANTOPRAZOLE 40 MG TABLET PO SCH (20:15)
[2022-09-24] MEDS: ATORVASTATIN 80 MG TAB PO SCH (20:15)
[2022-09-25 04:57] LABS: HCT 34.3 % (39.0-53.0); HGB 11.8 gm/dL (13.0-17.5); MCH 34.2 pg (25.0-35.0); MCHC 34.4 g/dL (31.0-37.0); MCV 99.3 fL (80.0-100.0); Mean Platelet Volume 9.1; Platelet Count 205 k/uL (150-450); RBC 3.46 m/uL (4.30-5.90); RDW 12.9 % (11.5-15.5); WBC 13.4 k/uL (3.8-10.6)
[2022-09-25 05:16] LABS: Albumin 3.1 g/dL (3.5-5.0); Calcium 8.4 mg/dL (8.4-10.2); Total Bilirubin 1.6 mg/dL (0.2-1.3); Total Protein 5.7 g/dL (6.3-8.2)
--- NOTE | 2022-09-25 07:31 | P.PN ---
Subjective Progress Note Date: 09/25/22 Principal diagnosis: Acute inferior ST elevation [place] This is a very pleasant 76-year-old gentleman with a past medical history significant for hypertension and dyslipidemia who presented to the emergency department complaining of chest discomfort. The patient chest discomfort st arted about 3 days ago. Apparently get worse earlier today when he decided to come to the emergency department. He was seen by Dr. Fernández who advised the patient to present to the emergency department. In the emergency department an EKG was performed and showed ST segment elevation inferiorly. For that reason an emergent heart catheterization was advised. The patient underwent an emergent heart catheterization and that revealed acute total occlusion of the RCA distally with large thrombus burden. He underwent successful stenting of the RCA with adjunctive use of mechanical aspiration thrombectomy with an excellent angiographic results by the end and without any complication from right groin approach. By the end of the procedure the ST elevation has improved and the chest discomfort has improved. The procedure was performed from right groin. He would be admitted to the intensive care unit. An echocardiogram will be ordered to assess the LV function. He will be on dual antiplatelet therapy as well as high intensity statin as well as anti-ischemic medication. We'll follow-up with the patient overnight few days. September [id number] The patient was seen this morning. He is stable from a cardiovascular standpoint of view. He is asymptomatic. He is mechanically stable as well. We are in process of having an echocardiogram. Meanwhile he continues to be on dual antiplatelet therapy as well as beta jorge as well as high intensity statin. From the cardiac standpoint the patient can be transferred to the floor. September [id number] The patient was seen this morning. He remains asymptomatic in terms of chest pain or chest discomfort. He remains hemodynamically stable as well was somewhat softer blood pressure. The echocardiogram is still pending. He remains on dual antiplatelet therapy as well as high intensity statin as well as anti-ischemic medications using beta jorge. We are still waiting for the echo. Potentially the patient can be transferred to the third floor for possible discharge in the next 24 hours. Objective - Vital Signs Vital signs: Vital Signs Temp 97.9 F 09/25/22 04:00 Pulse 73 09/25/22 04:00 Resp 12 09/25/22 04:00 BP 106/71 09/25/22 04:00 Pulse Ox 98 09/25/22 04:00 FiO2 Intake & Output 09/24/22 09/25/22 09/25/22 18:59 06:59 18:59 Intake Total 960 Output Total 625 400 300 Balance 335 -400 -300 Weight 91.3 kg Intake: Tube Feeding 960 Output: Urine 625 400 300 Other: Voiding Method Urinal # Voids 0 0 - Constitutional General appearance: Present: no acute distress - Respiratory Respiratory: bilateral: CTA - Cardiovascular Rhythm: regular - Labs CBC & Chem 7: 09/25/22 04:22 09/25/22 04:22 Labs: Abnormal Lab Results - Last 24 Hours (Table) 09/25/22 09/25/22 Range/Units 04:22 04:22 WBC 13.4 H (3.8-10.6) k/uL RBC 3.46 L (4.30-5.90) m/uL Hgb 11.8 L (13.0-17.5) gm/dL Hct 34.3 L (39.0-53.0) % Sodium 136 L (137-145) mmol/L Glucose 104 H (74-99) mg/dL Total Bilirubin 1.6 H (0.2-1.3) mg/dL AST 107 H (17-59) U/L Total Protein 5.7 L (6.3-8.2) g/dL Albumin 3.1 L (3.5-5.0) g/dL Assessment and Plan Assessment: Assessment #[address] patient myocardial infarction #2 status post PCI of the RCA Plan Continue current medical regimen Continue dual antiplatelet therapy Aggressive cholesterol control An echocardiogram was Doppler Follow-up with the patient Possible discharge in the next 24 hour
--- NOTE | 2022-09-25 08:31 | P.DS ---
Providers Date of admission: 09/23/22 18:12 Expected date of discharge: 09/26/22 Attending physician: Abdulkadir Fernández Consults: 09/23/22 18:01 Consult Physician Routine Consulting Provider: Ahmet Carranza Consult Reason/Comments: stemi Do you want consulting provider notified?: Already Contacted 09/23/22 19:32 Consult Physician Routine Consulting Provider: [facility] Consult Reason/Comments: Post Interventional patient Do you want consulting provider notified?: Already Contacted Primary care physician: Abdulkadir Fernández Hospital Course: HISTORY OF PRESENT ILLNESS This is a 76-year-old male patient with past medical history of hypertension, hyperlipidemia, gastroesophageal reflux disease, ALLERGIC rhinitis, obstructive sleep apnea, chronic back pain status post laminectomy. Patient presented to the office yesterday with complaints of chest pain with onset on Thursday and in general not feeling well. 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 Intermediate to severe lesion involving the first diagonal branch of the LAD, mildly elevated left sided filling pressure. Patient is seen today in the intensive care unit, he has been downgraded to cardiac stepdown unit. Patient states that he is feeling much better from yesterday. No chest pain, no shortness of breath, no lightheadedness or dizziness. Left heart cath approach was from the right groin with no signs of hematoma. No numbness or tingling to the extremities. Patient has CPAP at his bedside. Echocardiogram has been ordered for today. 09/25: Patient remains in the intensive care unit waiting for a bed on the cardiac stepdown unit. Echocardiogram has been performed but report is pending. No change in medications today. Plan is to continue monitoring the patient overnight and discharged tomorrow. Patient denies having any chest pain, shortness of breath. He has been ambulatory without lightheadedness or dizziness. Patient remains afebrile, heart rate 79, blood pressure 106/76 and pulse ox 97% on room air. WBC 13.4, hemoglobin 11.8, platelet count 205. Sodium 136 otherwise electrolytes and renal function are normal with creatinine of 1.09. Blood sugar 104. Total bilirubin 1.6 and AST 107. 10/28: Patient is seen today sitting in the ICU in a chair. He continues to wait for a bed on the cardiac stepdown unit. Patient denies having any chest pain or shortness of breath. He has been seen by cardiology this morning and cleared for discharge home. Patient remains afebrile, heart rate 73, blood pressure 113/70, pulse ox 99% on room air. No medication changes have been made overnight. Patient will be discharged home today in stable condition. DISCHARGE DIAGNOSES 1. Acute inferior wall ST elevated myocardial infarction. Patient is status post left heart catheterization and stenting of the RCA, mechanical thrombectomy. 2. Hypertension. 3. Hyperlipidemia. 4. Gastroesophageal reflux disease. 5. Seasonal ALLERGIES. DISCHARGE PLAN Return home. Greater than 35 minutes was utilized and coordinating patient's discharge. Impression and plan of care have been directed as dictated by the signing physician. Gerda Valenzuela nurse practitioner acting as scribe for signing physician. Patient Condition at Discharge: Good Plan - Discharge Summary Discharge Rx Participant: No New Discharge Prescriptions: New Ticagrelor [Brilinta] 90 mg PO BID #60 tab Aspirin 81 mg PO DAILY tab Atorvastatin [Lipitor] 80 mg PO HS #30 tab Metoprolol Tartrate [Lopressor] 25 mg PO BID #60 tab Nitroglycerin Sl Tabs [Nitrostat] 0.4 mg SUBLINGUAL Q5M PRN #25 tab PRN Reason: Chest Pain Continue Omeprazole [PriLOSEC] 20 mg PO HS Cetirizine HCl [Zyrtec] 10 mg PO DAILY PRN PRN Reason: Allergy Symptoms Ezetimibe [Zetia] 10 mg PO DAILY Discontinued Bisoprolol-Hctz 2.5-6.25 mg [Ziac 2.5-6.25 MG] 1 tab PO DAILY Atorvastatin [Lipitor] 20 mg PO DAILY Discharge Medication List Cetirizine HCl [Zyrtec] 10 mg PO DAILY PRN 09/12/19 [History] Omeprazole [PriLOSEC] 20 mg PO HS 09/12/19 [History] Ezetimibe [Zetia] 10 mg PO DAILY 09/23/22 [History] Aspirin 81 mg PO DAILY tab 09/25/22 [Rx] Atorvastatin [Lipitor] 80 mg PO HS #30 tab 09/25/22 [Rx] Metoprolol Tartrate [Lopressor] 25 mg PO BID #60 tab 09/25/22 [Rx] Nitroglycerin Sl Tabs [Nitrostat] 0.4 mg SUBLINGUAL Q5M PRN #25 tab 09/25/22 [Rx] Ticagrelor [Brilinta] 90 mg PO BID #60 tab 09/25/22 [Rx] Follow up Appointment(s)/Referral(s): Abdulkadir Fernández MD [Primary Care Provider] - 10/03/22 10:15 am Ahmet Carranza MD [STAFF PHYSICIAN] - 1 Week (Office will contact patient with appointment date and time.) Patient Instructions/Handouts: *Surgery [facility] - After Heart Catheterization - Tax Record Clerk Instructions, Heart Attack (DC), Heart Healthy Diet (DC) Activity/Diet/Wound Care/Special Instructions: No hot tub or soaking in bath tub, no lifting over 5-10 lbs, no strenuous activity until seen by cardiology. Discharge Disposition: HOME SELF-CARE
[2022-09-25] MEDS: TICAGRELOR 90 MG TAB PO SCH ×2 (08:59→20:29)
[2022-09-25] MEDS: METOPROLOL TARTRATE 25 MG TAB PO SCH ×2 (08:59→20:29)
[2022-09-25] MEDS: ASPIRIN 81 MG PO SCH (08:59)
--- NOTE | 2022-09-25 09:03 | P.PN ---
Subjective Progress Note Date: 09/25/22 HISTORY OF PRESENT ILLNESS This is a 76-year-old male patient with past medical history of hypertension, hyperlipidemia, gastroesophageal reflux disease, ALLERGIC rhinitis, obstructive sleep apnea, chronic back pain status post laminectomy. Patient presented to the office yesterday with complaints of chest pain with onset on Thursday and in general not feeling well. 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 Intermediate to severe lesion involving the first diagonal branch of the LAD, mildly elevated left sided filling pressure. Patient is seen today in the intensive care unit, he has been downgraded to cardiac stepdown unit. Patient states that he is feeling much better from yesterday. No chest pain, no shortness of breath, no lightheadedness or dizziness. Left heart cath approach was from the right groin with no signs of hematoma. No numbness or tingling to the extremities. Patient has CPAP at his bedside. Echocardiogram has been ordered for today. 09/25: Patient remains in the intensive care unit waiting for a bed on the cardiac stepdown unit. Echocardiogram has been performed but report is pending. No change in medications today. Plan is to continue monitoring the patient overnight and discharged tomorrow. Patient denies having any chest pain, shortness of breath. He has been ambulatory without lightheadedness or dizziness. Patient remains afebrile, heart rate 79, blood pressure 106/76 and pulse ox 97% on room air. WBC 13.4, hemoglobin 11.8, platelet count 205. Sodium 136 otherwise electrolytes and renal function are normal with creatinine of 1.09. Blood sugar 104. Total bilirubin 1.6 and AST 107. REVIEW OF SYSTEMS Constitutional: No fever, no chills, no night sweats. No weight change. No weakness, fatigue improved or now lethargy. No daytime sleepiness. EENT: No headache. No blurred vision or double vision, no loss of vision. No loss of Hearing, no ringing in the ears, no dizziness. No nasal drainage or congestion. No epistaxis. No sore throat. Lungs: No shortness of breath, cough, no sputum production. No wheezing. Cardiovascular: No chest pain-has resolved, no lower extremity edema. No palpitations. No paroxysmal nocturnal dyspnea. No orthopnea. No lightheadedness or dizziness. No syncopal episodes. Abdominal: No abdominal pain. No nausea, vomiting. No diarrhea. No constipation. No bloody or tarry stools. No loss of appetite. Genitourinary: No dysuria, increased frequency, urgency. No urinary retention. Musculoskeletal: No myalgias. No muscle weakness, no gait dysfunction, no frequent falls. No back pain. No neck pain. Integumentary: No wounds, no lesions. No rash or pruritus. No unusual bruising. No change in hair or nails. Neurologic: No aphasia. No facial droop. No change in mentation. No head injury. No headache. No paralysis. No paresthesia. Psychiatric: No depression. No anxiety. No mood swings. Endocrine: No abnormal blood sugars. No weight change. No excessive sweating or thirst. No cold intolerance. PHYSICAL EXAMINATION Gen: This is a 76-year-old male. He is resting in a chair in ICU and appears to be comfortable and in no acute distress. HEENT: Head is atraumatic, normocephalic. Pupils equal, round, reactive to light and accommodation. Sclerae is anicteric. NECK: Supple. No JVD. No lymphadenopathy. No thyromegaly. LUNGS: Clear to auscultation. No wheezes or rhonchi. No intercostal retractions. No chest wall tenderness or intercostal retractions. HEART: First heart sound is depressed, second heart sound is normal, there is a 2/6 systolic ejection murmur at the left sternal border, no S3 or S4. ABDOMEN: Soft. Bowel sounds are present. No masses. No tenderness. EXTREMITIES: No pedal edema. No calf tenderness dorsalis pedis +2 bilaterally. Right groin with no hematoma.. NEUROLOGICAL: Patient is awake, alert and oriented x3. Cranial nerves 2 through 12 are grossly intact. ASSESSMENT AND PLAN 1. Acute inferior wall ST elevated myocardial infarction. Patient is status post left heart catheterization and stenting of the RCA, mechanical thrombectomy. Patient waiting for a bed on the cardiac stepdown unit. Patient continued on aspirin 81 mg daily, atorvastatin 80 mg daily, Lopressor 25 mg twice daily, Brilinta 90 mg twice daily 2. Hypertension. Continue patient on Lopressor 25 mg twice daily. Ziac discontinued. 3. Hyperlipidemia. Continue atorvastatin 80 mg daily. 4. Gastroesophageal reflux disease and GI prophylaxis. Patient resumed on omeprazole 20 mg at bedtime. 5. Seasonal ALLERGIES. Patient resumed on Zyrtec 10 mg daily as needed. 6. DVT prophylaxis. Early ambulation. DISCHARGE PLAN Return home on Thursday. Impression and plan of care have been directed as dictated by the signing physician. Gerda Valenzuela nurse practitioner acting as scribe for signing physician. Objective - Vital Signs Vital signs: Vital Signs Temp 97.9 F 09/25/22 04:00 Pulse 73 09/25/22 04:00 Resp 12 09/25/22 04:00 BP 106/71 09/25/22 04:00 Pulse Ox 98 09/25/22 04:00 FiO2 Intake & Output 09/24/22 09/25/22 09/25/22 18:59 06:59 18:59 Intake Total 960 Output Total 625 400 300 Balance 335 -400 -300 Weight 91.3 kg Intake: Tube Feeding 960 Output: Urine 625 400 300 Other: Voiding Method Urinal # Voids 0 0 - Labs CBC & Chem 7: 09/25/22 04:22 09/25/22 04:22 Labs: Abnormal Lab Results - Last 24 Hours (Table) 09/25/22 09/25/22 Range/Units 04:22 04:22 WBC 13.4 H (3.8-10.6) k/uL RBC 3.46 L (4.30-5.90) m/uL Hgb 11.8 L (13.0-17.5) gm/dL Hct 34.3 L (39.0-53.0) % Sodium 136 L (137-145) mmol/L Glucose 104 H (74-99) mg/dL Total Bilirubin 1.6 H (0.2-1.3) mg/dL AST 107 H (17-59) U/L Total Protein 5.7 L (6.3-8.2) g/dL Albumin 3.1 L (3.5-5.0) g/dL
[2022-09-25 12:00] VITALS: BMI 28.8
--- NOTE | 2022-09-25 15:29 | CA ---
Transthoracic Echo Report Name: Hussein Douglas Age: 76 Gender: M : 1945 Exam Date: 09/24/2022 08:38 Exam Location: [place] [facility] Ht (in): 70 Wt (lb): 200 Ordering Physician: Ahmet Carranza MD ([id number]) Attending/Referring Phys: Data Examination Clerk Jo Ann Dugan RDCS Procedure CPT: Indications: stemi Cardiac Hx: Technical Quality: Poor Contrast 1: Total Dose (mL): Contrast 2: Total Dose (mL): MEASUREMENTS (Male / Female) Normal Values 2D ECHO LV Diastolic Diameter PLAX 5.3 cm 4.2 - 5.9 / 3.9 - 5.3 cm LV Systolic Diameter PLAX 3.7 cm IVS Diastolic Thickness 1.4 cm 0.6 - 1.0 / 0.6 - 0.9 cm LVPW Diastolic Thickness 1.5 cm 0.6 - 1.0 / 0.6 - 0.9 cm LV Relative Wall Thickness 0.5 RV Internal Dim ED PLAX 3.7 cm LA Systolic Diameter LX 3.7 cm 3.0 - 4.0 / 2.7 - 3.8 cm LA Volume 73.3 cm??? 18 - 58 / 22 - 52 cm??? M-MODE Aortic Root Diameter MM 3.7 cm MV E Point Septal Separation 1.6 cm AV Cusp Separation MM 2.0 cm DOPPLER AV Peak Velocity 181.1 cm/s AV Peak Gradient 13.1 mmHg AV Mean Velocity 134.3 cm/s AV Mean Gradient 7.8 mmHg AV Velocity Time Integral 33.2 cm AI Peak Velocity 244.2 cm/s AI Peak Gradient 23.8 mmHg AI Pressure Half Time 831.1 ms LVOT Peak Velocity 132.5 cm/s LVOT Peak Gradient 7.0 mmHg MV Area PHT 3.6 cm??? Mitral E Point Velocity 71.6 cm/s Mitral A Point Velocity 92.3 cm/s Mitral E to A Ratio 0.8 MV Deceleration Time 211.6 ms MV E' Velocity 6.1 cm/s Mitral E to MV E' Ratio 11.7 TR Peak Velocity 242.3 cm/s TR Peak Gradient 23.5 mmHg Right Ventricular Systolic Press 28.2 mmHg FINDINGS Left Ventricle Left ventricular ejection fraction is estimated at 40-45 %. Left ventricular cavity size normal. Moderate concentric left ventricular hypertrophy. Infero apical wall hypokinesis Right Ventricle Mild right ventricular dilatation. Right ventricular systolic pressure within normal limits. Right Atrium Normal right atrial size. Left Atrium Moderately increased left atrial volume. Mildly increased left atrial area. No evidence for an atrial septal defect. Mitral Valve Mitral valve thickened. Trace to mild mitral regurgitation. Aortic Valve Focal thickening of the aortic valve cusps. Tricuspid Valve Trace to mild tricuspid regurgitation. Pulmonic Valve Pulmonic valve not well visualized. Pericardium Normal pericardium. No pericardial effusion. Aorta Normal size aortic root and proximal ascending aorta. CONCLUSIONS Reduce LV systolic function with inferior wall hypokinesis Ejection fraction 40-45% Previewed by: Dr. Ghulam Pizano MD (Electronically Signed) Final Date: 25 September 2022 15:28
[2022-09-25] MEDS: SODIUM CHLORIDE 0.9% 1,000 ML IV SCH (20:00)
[2022-09-25] MEDS: ATORVASTATIN 80 MG TAB PO SCH (20:29)
[2022-09-25] MEDS: PANTOPRAZOLE 40 MG TABLET PO SCH (20:29)
--- NOTE | 2022-09-26 08:48 | P.PN ---
Subjective Progress Note Date: 09/26/22 Principal diagnosis: Acute inferior ST elevation [place] This is a very pleasant 76-year-old gentleman with a past medical history significant for hypertension and dyslipidemia who presented to the emergency department complaining of chest discomfort. The patient chest discomfort st arted about 3 days ago. Apparently get worse earlier today when he decided to come to the emergency department. He was seen by Dr. Fernández who advised the patient to present to the emergency department. In the emergency department an EKG was performed and showed ST segment elevation inferiorly. For that reason an emergent heart catheterization was advised. The patient underwent an emergent heart catheterization and that revealed acute total occlusion of the RCA distally with large thrombus burden. He underwent successful stenting of the RCA with adjunctive use of mechanical aspiration thrombectomy with an excellent angiographic results by the end and without any complication from right groin approach. By the end of the procedure the ST elevation has improved and the chest discomfort has improved. The procedure was performed from right groin. He would be admitted to the intensive care unit. An echocardiogram will be ordered to assess the LV function. He will be on dual antiplatelet therapy as well as high intensity statin as well as anti-ischemic medication. We'll follow-up with the patient overnight few days. September [id number] The patient was seen this morning. He is stable from a cardiovascular standpoint of view. He is asymptomatic. He is mechanically stable as well. We are in process of having an echocardiogram. Meanwhile he continues to be on dual antiplatelet therapy as well as beta jorge as well as high intensity statin. From the cardiac standpoint the patient can be transferred to the floor. September [id number] The patient was seen this morning. He remains asymptomatic in terms of chest pain or chest discomfort. He remains hemodynamically stable as well was somewhat softer blood pressure. The echocardiogram is still pending. He remains on dual antiplatelet therapy as well as high intensity statin as well as anti-ischemic medications using beta jorge. We are still waiting for the echo. Potentially the patient can be transferred to the third floor for possible discharge in the next 24 hours. September [id number] The patient was seen this morning. He is asymptomatic. He is mechanically stable as well. The echo revealed mildly impaired LV function with EF between 40-45%. He is on dual antiplatelet therapy along with high intensity statin. The patient can be discharged home from the cardiac vascular standpoint overview. I'm going to follow-up with the patient in a week in the office. Objective - Vital Signs Vital signs: Vital Signs Temp 98.4 F 09/26/22 04:00 Pulse 67 09/26/22 04:00 Resp 18 09/26/22 04:00 BP 118/78 09/26/22 04:00 Pulse Ox 98 09/26/22 04:00 FiO2 Intake & Output 09/25/22 09/26/22 09/26/22 18:59 06:59 18:59 Output Total 300 200 Balance -300 -200 Weight 91.3 kg 91.4 kg Output: Urine 300 200 Other: Voiding Method Urinal Urinal # Voids 2 0 # Bowel Movements 1 - Constitutional General appearance: Present: no acute distress - Respiratory Respiratory: bilateral: CTA - Cardiovascular Rhythm: regular Heart sounds: normal: S1, S2 - Labs CBC & Chem 7: 09/25/22 04:22 09/25/22 04:22 Assessment and Plan Assessment: Assessment #[address] patient myocardial infarction #2 status post PCI of the RCA Plan Continue current medical regimen Continue dual antiplatelet therapy Aggressive cholesterol control The echo revealed mildly impaired only function Follow-up with the patient The patient can be discharged home today
[2022-09-26] MEDS: METOPROLOL TARTRATE 25 MG TAB PO SCH (08:58)
[2022-09-26] MEDS: TICAGRELOR 90 MG TAB PO SCH (08:58)
[2022-09-26] MEDS: ASPIRIN 81 MG PO SCH (08:58)
[2022-09-26 09:13] VITALS: PULSE 73; RESP 21; TEMP 98.2
[2022-09-26 09:29] VITALS: BP 113/70
== END 2022-09-26 11:15 | disposition home or self-care (01) | DRG 247 ==
LOC: EC 17:02 → 2SICU 18:12
PROVIDERS: ADMIT Internal Medicine; ATTEND Internal Medicine
PROC: B41F1ZZ Fluoroscopy of Right Lower Extremity Arteries using Low Osmolar Contrast (ICD-10-PCS; 2022-09-23)
PROC: 027035Z Dilation of Coronary Artery, One Artery with Two Drug-eluting Intraluminal Devices, Percutaneous Approach (ICD-10-PCS; principal; 2022-09-23 18:07)
PROC: B2111ZZ Fluoroscopy of Multiple Coronary Arteries using Low Osmolar Contrast (ICD-10-PCS; 2022-09-23 18:07)
PROC: 02C03ZZ Extirpation of Matter from Coronary Artery, One Artery, Percutaneous Approach (ICD-10-PCS; 2022-09-23 18:07)
PROC: 4A023N7 Measurement of Cardiac Sampling and Pressure, Left Heart, Percutaneous Approach (ICD-10-PCS; 2022-09-23 18:07)
DX: I21.3 ST elevation (STEMI) myocardial infarction of unspecified site (principal); I10 Essential (primary) hypertension; I08.1 Rheumatic disorders of both mitral and tricuspid valves; E78.5 Hyperlipidemia, unspecified; I21.19 ST elevation (STEMI) myocardial infarction involving other coronary artery of inferior wall; I25.10 Atherosclerotic heart disease of native coronary artery without angina pectoris; K21.9 Gastro-esophageal reflux disease without esophagitis; J30.2 Other seasonal allergic rhinitis; G47.33 Obstructive sleep apnea (adult) (pediatric); G89.29 Other chronic pain; M54.9 Dorsalgia, unspecified; Z96.651 Presence of right artificial knee joint; Z79.899 Other long term (current) drug therapy; Z87.891 Personal history of nicotine dependence; Z28.310 Unvaccinated for COVID-19
CPT/HCPCS: 36415; 71045; 76937; 80048; 80053; 84484; 85025; 85027; 85610; 85730; 87635; 92973; 93005; 93306; 93458; 96374; 99285